=== PATIENT | male | born 1945 | race Caucasian/White ===

== ENCOUNTER 2024-12-06 09:56 | Observation (INO) ==
[~2024-12-06 09:56] MED LIST: Dexamethasone IV 4 MG/ML VIAL 1 ml VIAL ONE; Glycopyrrolate IV 0.2 MG/ML 1 ML VIAL ONE; Lidocaine 2% PF 5 ML VIAL ONE; Metoclopramide 5 MG/ML VIAL (10 mg) IV PRN; Midazolam 2 mg/2 ml VIAL 1 mg/ml 2 ml VIAL (2 mg) ONE; NS 0.45% 1000 ml BAG 1,000 ML IV SCH; Naloxone 0.4 mg VIAL 0.4 mg/ml 1 ml VIAL IV PRN; Ondansetron 4 mg VIAL 2 MG/ML 2 ml VIAL IV PRN; Ondansetron 4 mg VIAL 2 MG/ML 2 ml VIAL ONE; Propofol 10 MG/ML 20 ML BTL ONE; ROPIVACAINE 5 MG/ML 30 ML BTL (0.5%) ONE; fentaNYL 100 mcg/2 ml 50 MCG/ML VIAL IV PRN; fentaNYL 100 mcg/2 ml 50 MCG/ML VIAL ONE
[2024-12-06] MEDS: Buffered Lidocaine 1% SYRIN 1 ml INTRADERM ONE (10:17)
[2024-12-06] MEDS ORDERED: ceFAZolin 2 GM PREMIX 2 GM/50 ML BAG ONE (10:18)
[2024-12-06] MEDS ORDERED: Tranexamic Acid 1 GM/100ML BAG 2,000 MG/200 ML BAG IV ONE (10:21)
[2024-12-06 10:41] LABS: Rapid COVID-19 Molecular Undetected (Undetected)
[2024-12-06] MEDS: Lactated Ringers 1000 ml BAG 1,000 ML IV SCH ×2 (10:49→16:18)
[2024-12-06] MEDS: Scopolamine 1 mg/72hr PATCH TRANSDERM ONE (10:49)
[2024-12-06] MEDS ORDERED: Calcium Carb (TUMS) 500 mg CHEW TAB PO PRN (10:54)
[2024-12-06] MEDS ORDERED: Ondansetron 4 mg VIAL 2 MG/ML 2 ml VIAL IV PRN (10:54)
[2024-12-06] MEDS ORDERED: Magnesium Hydroxide LIQ 30 ML UDC PO PRN (10:54)
[2024-12-06] MEDS ORDERED: Lactulose 30 ml UDC PO PRN (10:54)
[2024-12-06] MEDS ORDERED: Morphine 2 MG/ML SYRINGE IV PRN (10:54)
[2024-12-06] MEDS ORDERED: Ondansetron ODT 4 mg TAB 4 MG TAB PO PRN (10:54)
[2024-12-06] MEDS ORDERED: KETAMINE HCL 10 MG/ML 20 ml VIAL (200 MG) ONE (12:31)
[2024-12-06] MEDS ORDERED: Propofol 10 MG/ML 20 ML BTL ONE (13:22)
[2024-12-06] MEDS: Acetaminophen IV 1 GM/100ML 1,000 MG/100 ML BAG IV ONE (16:18)
[2024-12-06] MEDS: ceFAZolin 2 GM PREMIX 2 GM/50 ML BAG IV SCH ×2 (16:18→19:40)
[2024-12-07] MEDS: Magnesium Hydroxide LIQ 30 ML UDC PO SCH (01:05)
[2024-12-07 06:30] LABS: Hematocrit 38.7 % (38-53); Hemoglobin 13.3 g/dL (13.2-16.3); Mean Platelet Volume 7.8 fL (7.5-11.2); Platelet Count 200 10^3/uL (150-450)
[2024-12-07 06:50] LABS: Calcium 8.2 mg/dL (8.6-10.3); Potassium 4.4 mmol/L (3.5-5.0); eGFR CKD-EPI 76.1 (>60)
[2024-12-07] MEDS: Vitamin THERAPEUTIC TAB PO SCH (07:59)
[2024-12-07 10:08] VITALS: BP 104/52
== END 2024-12-07 14:00 | disposition home or self-care (01) ==
LOC: OR 09:56 → SSU 09:56
PROVIDERS: ADMIT Orthopaedic Surgery Adult Reconstructive Orthopaedic Surgery; ATTEND Orthopaedic Surgery Adult Reconstructive Orthopaedic Surgery